=== PATIENT | male | born 1960 | race Caucasian/White ===

== ENCOUNTER 2021-05-12 08:31 | Outpatient (CLI) | payer OTHER ==
[2021-05-12 10:26] LABS: #Basophils 0.1 10x3/uL (0.0-0.2); #Eosinphils 0.3 10x3/uL (0.0-0.5); #Monocytes 0.7 10x3/uL (0.0-1.1); #Neutrophils 5.6 10x3/uL (1.5-8.4); %Eosinophils 3.3 % (0.0-6.0); %Lymphocytes 14.3 % (18.0-47.0); %Monocytes 8.6 % (0.0-10.0); %Neutrophils 71.9 % (40.0-75.0); Hemoglobin 13.8 g/dL (13.5-17.5); Mean Corpuscular HGB CONC 32.7 g/dL (32.0-36.0); Mean Corpuscular Hemoglobin 27.4 pg (27.0-33.0); Mean Corpuscular Volume 83.9 fl (81.2-95.1); Platelet Count 326 10x3/uL (150-450); RBC Distribution Width 13.1 % (11.5-14.5); Red Blood Cell (RBC) Count 5.03 10x6/uL (4.32-5.72); White Blood Cell (WBC) Count 7.8 10x3/uL (3.5-10.5)
[2021-05-12 10:42] LABS: Anion Gap 16 mmol/L (10-20); BUN (Urea Nitrogen) 13 mg/dL (8.4-25.7); Calc. Creatinine Clearance 0 mL/min (70-130); Calcium 9.1 mg/dL (7.8-10.44); Carbon Dioxide 24 mmol/L (23-31); Chloride 101 mmol/L (98-107); Glucose 144 mg/dL (80-115); Potassium 4.7 mmol/L (3.5-5.1); Sodium 136 mmol/L (136-145)
[2021-05-12 10:54] LABS: Prothrombin Time 10.7 sec (9.5-12.1)
[2021-05-12 22:40] LABS: SARS-CoV-2 PCR by NAA Not Detected (NotDetected)
== END 2021-05-12 08:32 | disposition home or self-care (01) ==
LOC: LABBT 08:31
PROVIDERS: ATTEND Orthopaedic Surgery
DX: Z01.812 Encounter for preprocedural laboratory examination (principal); Z20.822 Contact with and (suspected) exposure to COVID-19
CPT/HCPCS: 80048; 85025; 85610; 87081; 93005; 93010; U0003; U0005

== ENCOUNTER 2021-05-12 12:45 | Inpatient (IN) | payer OTHER ==
[2021-05-11 10:21] VITALS: BMI 36.2
[2021-05-17] MEDS ORDERED: Tranexamic Acid 1,000 MG/10 ML VIAL ONE (07:35)
[2021-05-17] MEDS ORDERED: Sodium Chloride 0.9% 100 ML ONE (07:35)
[2021-05-17] MEDS ORDERED: ceFAZolin 2 GM/DEX 5% 100 ML BAG ONE (07:35)
[2021-05-17] MEDS ORDERED: VANCOMYCIN 2 GRAM/400 ML BAG 2 GM in Premix Bag 1 BAG IVPB SCH ×2 (07:45→20:00)
[2021-05-17] MEDS ORDERED: Fentanyl 100 MCG/2 ML VIAL ONE ×5 (08:19→13:48)
[2021-05-17] MEDS ORDERED: Midazolam HCl 2 mg/2 ml Vial ONE (08:19)
[2021-05-17] MEDS ORDERED: Bupivacaine HCl 0.5%/Epinephrine 1:200,000/PF 30 ml Vial ONE (09:00)
[2021-05-17] MEDS ORDERED: HYDROmorphone 0.5 MG/0.5 ML SYRINGE ONE ×3 (09:20→12:42)
[2021-05-17] MEDS ORDERED: EPINEPHrine 1 MG/ML AMP ONE (10:15)
[2021-05-17] MEDS ORDERED: Bupivacaine 0.25% 10 ML VIAL ONE (10:15)
[2021-05-17] MEDS ORDERED: Zolpidem Tartrate 5 MG TAB PO PRN ×2 (12:01→12:30)
[2021-05-17] MEDS ORDERED: diphenhydrAMINE 25 MG CAP PO PRN (12:01)
[2021-05-17] MEDS ORDERED: Ondansetron PF 4 MG/2 ML Vial IVP PRN ×2 (12:01→12:30)
[2021-05-17] MEDS ORDERED: Promethazine HCl 25 MG/ML VIAL IM PRN ×2 (12:01→12:30)
[2021-05-17] MEDS ORDERED: Acetaminophen 325 MG TAB PO PRN (12:01)
[2021-05-17] MEDS ORDERED: Fentanyl 100 MCG/2 ML VIAL IV PRN (12:23)
[2021-05-17] MEDS ORDERED: traMADol HCl 50 MG TAB PO PRN ×2 (12:30)
[2021-05-17] MEDS ORDERED: Ropivacaine 0.2% 550 ML 550 ML NERVE BLCK SCH (12:30)
[2021-05-17] MEDS ORDERED: HYDROcodone/Acetaminophen 10/325 mg Tablet PO PRN (12:30)
[2021-05-17] MEDS: Sodium Chloride 0.9% 1,000 ML IV SCH ×2 (15:44→22:00)
[2021-05-17] MEDS: ceFAZolin Sodium/D5W 2 GM in Premix Bag 1 BAG IVPB SCH (15:44)
[2021-05-17] MEDS: HYDROcodone/Acetaminophen 10/325 mg Tablet PO PRN ×2 (15:44→20:26)
[2021-05-17] MEDS ORDERED: DULAGLUTIDE 1.5 MG/0.5 ML SC SCH (17:00)
[2021-05-17] MEDS ORDERED: Dextrose 5% in Water 1,000 ML IV PRN (17:36)
[2021-05-17] MEDS ORDERED: HumaLOG 300 UNITS/3 ML VIAL SC PRN (17:36)
[2021-05-17] MEDS ORDERED: Dextrose 50% Abboject 50 ML SYRINGE SLOW IVP PRN (17:36)
[2021-05-17] MEDS: Ketorolac Tromethamine 30 MG/ML VIAL IVP SCH (18:03)
[2021-05-17] MEDS: metFORMIN 500 MG TAB PO SCH (20:25)
[2021-05-17] MEDS: Senokot S 8.6-50 MG TAB PO SCH (20:25)
[2021-05-17] MEDS: Aspirin 81 mg Enteric Coated Tablet PO SCH (20:26)
[2021-05-17] MEDS: Ferrous Gluconate 324 MG TAB PO SCH (20:26)
[2021-05-17] MEDS ORDERED: Atorvastatin Calcium 40 MG TAB PO SCH (21:00)
[2021-05-18] MEDS: Ketorolac Tromethamine 30 MG/ML VIAL IVP SCH ×3 (00:49→11:35)
[2021-05-18] MEDS: ceFAZolin Sodium/D5W 2 GM in Premix Bag 1 BAG IVPB SCH (00:49)
[2021-05-18 05:50] LABS: #Eosinphils 0.1 thou/uL (0.0-0.7); #Neutrophils 7.1 thou/uL (1.40-6.50); %Basophils 0.5 % (0.0-1.0); %Eosinophils 0.8 % (0.0-10.0); %Lymphocytes 11.1 % (21.0-51.0); %Monocytes 10.3 % (0.0-10.0); %Neutrophils 77.3 % (42.0-75.0); Hemoglobin 12.3 g/dL (14.0-18.0); Mean Corpuscular HGB CONC 34.2 g/dL (32.0-36.0); Mean Corpuscular Hemoglobin 29.5 pg (27.0-31.0); Mean Corpuscular Volume 86.3 fL (78.0-98.0); Mean Platelet Volume 7.9 fL (7.4-10.4); Platelet Count 240 thou/uL (130-400); RBC Distribution Width 12.6 % (11.5-14.5); Red Blood Cell (RBC) Count 4.16 mill/uL (4.70-6.10); White Blood Cell (WBC) Count 9.2 thou/uL (4.8-10.8)
[2021-05-18 05:54] LABS: Hemoglobin 12.2 g/dL (14.0-18.0); Mean Corpuscular HGB CONC 33.6 g/dL (32.0-36.0); Mean Corpuscular Volume 86.3 fL (78.0-98.0); Mean Platelet Volume 7.9 fL (7.4-10.4); Platelet Count 242 thou/uL (130-400); RBC Distribution Width 12.6 % (11.5-14.5); Red Blood Cell (RBC) Count 4.19 mill/uL (4.70-6.10); White Blood Cell (WBC) Count 9.5 thou/uL (4.8-10.8)
[2021-05-18 06:17] LABS: Anion Gap 13 mmol/L (10-20); BUN (Urea Nitrogen) 14 mg/dL (8.4-25.7); Calc. Creatinine Clearance 178 mL/min (70-130); Calcium 8.7 mg/dL (7.8-10.44); Carbon Dioxide 25 mmol/L (23-31); Chloride 100 mmol/L (98-107); Glucose 175 mg/dL (80-115); Potassium 3.5 mmol/L (3.5-5.1); Sodium 134 mmol/L (136-145)
[2021-05-18] MEDS ORDERED: Multivitamin W/ Minerals 1 TAB PO SCH (09:00)
[2021-05-18] MEDS ORDERED: Lantus 1000 UNITS/10 ML VIAL SC SCH (09:00)
[2021-05-18] MEDS ORDERED: Lisinopril/Hydrochlorothiazide 20 mg/12.5 mg Tablet PO SCH (09:00)
[2021-05-18] MEDS ORDERED: FLU VACC QS2021-22(6MOS UP)/PF 60 MCG/0.5 ML SYRINGE IM ONE (09:00)
[2021-05-18] MEDS ORDERED: buPROPion HCl 100 MG TAB PO SCH (09:00)
[2021-05-18] MEDS ORDERED: HYDROcodone/Acetaminophen 10/325 mg Tablet PO PRN ×4 (09:34→10:03)
[2021-05-18] MEDS: metFORMIN 500 MG TAB PO SCH (09:45)
[2021-05-18] MEDS: Senokot S 8.6-50 MG TAB PO SCH (09:45)
[2021-05-18] MEDS: Ferrous Gluconate 324 MG TAB PO SCH (09:46)
[2021-05-18] MEDS: Aspirin 81 mg Enteric Coated Tablet PO SCH (09:46)
[2021-05-18] MEDS: Sodium Chloride 0.9% 1,000 ML IV SCH (09:47)
[2021-05-18 12:27] VITALS: BP 177/85; TEMP 99.4
== END 2021-05-18 15:35 | disposition home or self-care (01) | DRG 470 ==
LOC: SURG A 05-17 07:02 → SJJU 05-17 14:12
PROVIDERS: ADMIT Orthopaedic Surgery; ATTEND Orthopaedic Surgery
PROC: 0SRD0J9 Replacement of Left Knee Joint with Synthetic Substitute, Cemented, Open Approach (ICD-10-PCS; principal; 2021-05-17)
DX: M17.12 Unilateral primary osteoarthritis, left knee (principal); I10 Essential (primary) hypertension; E78.5 Hyperlipidemia, unspecified; E11.51 Type 2 diabetes mellitus with diabetic peripheral angiopathy without gangrene; F17.220 Nicotine dependence, chewing tobacco, uncomplicated; F32.A Depression, unspecified; F41.9 Anxiety disorder, unspecified; E78.00 Pure hypercholesterolemia, unspecified; G89.29 Other chronic pain; G43.909 Migraine, unspecified, not intractable, without status migrainosus; Z90.49 Acquired absence of other specified parts of digestive tract; Z85.038 Personal history of other malignant neoplasm of large intestine; Z92.21 Personal history of antineoplastic chemotherapy; Z79.899 Other long term (current) drug therapy; Z79.84 Long term (current) use of oral hypoglycemic drugs
CPT/HCPCS: 36415; 36416; 80048; 85027; A4306; C1713; C1776; J0171; J1170; J1815; J1885; J2250; J2795; J3010; J3370; J3490; J7050; S0020

== ENCOUNTER 2022-02-15 08:34 | Outpatient (CLI) | payer OTHER | END 2022-02-15 08:35 | disposition home or self-care (01) | LOC: TBSIIMAG 08:34 | PROVIDERS: ATTEND Orthopaedic Surgery | DX: M50.11 Cervical disc disorder with radiculopathy, high cervical region (principal) | CPT/HCPCS: 72141 ==